=== PATIENT | female | born 1995 | race Two or more races ===

== ENCOUNTER 2018-12-20 15:59 | Emergency (ER) | payer MEDICARE, MEDICAID ==
[~2018-12-20] VITALS: Ht 157.5 cm; Wt 99.3 kg
[2018-12-20] MEDS ORDERED: SERTRALINE HCL25 MG ORAL (16:39)
[2018-12-20] MEDS ORDERED: TRAZODONE HCL150 MG ORAL (16:39)
[2018-12-20 16:41] VITALS: BP 103/67
[2018-12-20] MEDS ORDERED: Metoclopramide 10mg/2ml Inj IVP ONE (17:00)
[2018-12-20 17:19] LABS: APPEARANCE,URINE CLEAR; BILIRUBIN, URINE 1+ (NEGATIVE); COLOR,URINE BROWN; GLUCOSE, URINE (UA) NEGATIVE (NEGATIVE); KETONES,URINE 4+ (NEGATIVE); LEUKOCYTE ESTERASE ,URINE 2+ (NEGATIVE); NITRITE,URINE NEGATIVE (NEGATIVE); PH,URINE 6 (4.5-8.0); PROTEIN,URINE 2+ (NEGATIVE); UROBILINOGEN,URINE 4 MG/DL (0.0-1.0)
[2018-12-20 17:25] LABS: BASOPHILS % (AUTO) 1.2 % (0.0-2.0); EOSINOPHILS % (AUTO) 4.7 % (0.0-3.0); HEMATOCRIT 38.2 % (37.0-47.0); HEMOGLOBIN 13.1 G/DL (12.0-16.0); LYMPHOCYTES % (AUTO) 14.6 % (20.0-45.0); MEAN CORPUSCULAR VOLUME 86 FL (80-99); MONOCYTES % (AUTO) 5.4 % (1.0-10.0); NEUTROPHILS % (AUTO) 74.1 % (45.0-75.0); PLATELET COUNT 335 K/UL (150-450); RED BLOOD COUNT 4.44 M/UL (4.20-5.40); RED CELL DISTRIBUTION WIDTH 12.2 % (11.6-14.8); WHITE BLOOD COUNT 9.4 K/UL (4.8-10.8)
--- NOTE | 2018-12-20 17:26 | NUR ---
ED Nurse Note: pt walked in c/o abd pain and diarrhea.blood and urine sent ivf up pt medicated will monitor.
[2018-12-20 17:37] LABS: ANION GAP 9 mmol/L (5-15); BLOOD UREA NITROGEN 4 mg/dL (7-18); CALCIUM 8.8 MG/DL (8.5-10.1); CARBON DIOXIDE 25 MMOL/L (21-32); CHLORIDE 105 MMOL/L (98-107); CREATININE 0.6 MG/DL (0.55-1.30); SODIUM 139 MMOL/L (136-145)
[2018-12-20 17:47] LABS: ALANINE AMINOTRANSFERASE 23 U/L (12-78); ALBUMIN 3.6 G/DL (3.4-5.0); ALKALINE PHOSPHATASE 64 U/L (46-116); ASPARTATE AMINO TRANSFERASE 35 U/L (15-37); BILIRUBIN,TOTAL 1.2 MG/DL (0.2-1.0)
[2018-12-20 17:52] LABS: BILIRUBIN,DIRECT 0.1 MG/DL (0.0-0.3)
--- NOTE | 2018-12-20 18:42 | Emergency Room Report ---
History of Present Illness General Chief Complaint: Vomiting Source: Patient Present Illness HPI 23-year-old female with history of depression currently controlled with sertraline and trazodone is sent here by psychiatric facility due to 1 day of few bouts of nonbloody emesis. Patient reports that she has been having low appetite for the past day after the start of the new dosage of her sertraline. According to her psychiatrist patient needed to be checked at the emergency room. Patient denies diarrhea, abdominal pain, fever and chills. Chest pain, shortness of breath, palpitation, urinary symptoms. Her last menstrual period was a week ago and denies being . Denies drug use and alcohol intake. Denies smoking. Has not taken medication for her symptoms. Patient appears stable with stable vital signs. Has been able to take oral hydration. Patient reports that she used to take 100 mg of sertraline daily and as recommended by her psychiatrist in the facility she started taking 150 mg yesterday. Denies recent travel. Allergies: Coded Allergies: No Known Allergies (Unverified , 12/20/18) Patient History Past Medical History: see triage record Past Surgical History: unable to obtain Pertinent Family History: none Last Menstrual Period: 7-6 Now: No Immunizations: UTD Reviewed Nursing Documentation: PMH: Agreed; PSxH: Agreed Nursing Documentation-PMH Past Medical History: No History, Except For History Of Psychiatric Problem: Yes - depression Review of Systems All Other Systems: negative except mentioned in HPI Physical Exam Vital Signs Date Time Temp Pulse Resp B/P (MAP) Pulse Ox O2 Delivery O2 Flow Rate FiO2 12/20/18 16:33 98.4 70 103/67 (79) 98 Room Air 12/20/18 16:58 18 Sp02 EP Interpretation: reviewed, normal General Appearance: normal inspection, well appearing, no apparent distress, alert, GCS 15 Head: normocephalic, atraumatic Eyes: bilateral eye normal inspection, bilateral eye PERRL ENT: normal ENT inspection, hearing grossly normal Neck: normal inspection, full range of motion, supple Respiratory: normal inspection, chest non-tender, lungs clear, normal breath sounds, no rhonchi, no wheezing Cardiovascular #1: normal inspection, normal peripheral pulses, regular rate, rhythm, no edema, no gallop, no murmur, normal capillary refill Gastrointestinal: normal inspection, non tender, soft, no mass, no guarding, no hernia Rectal: deferred Genitourinary: no CVA tenderness Musculoskeletal: normal inspection, back normal, digits/nails normal Neurologic: normal inspection, alert, oriented x3 Psychiatric: normal inspection, judgement/insight normal, memory normal Skin: no rash Lymphatic: normal inspection, no adenopathy Medical Decision Making PA Attestation All my diagnosis and treatment plans were reviewed ad discussed with my supervising physician Dr. Pierson Diagnostic Impression: Primary Impression: Nausea Additional Impression: Adverse reaction to antidepressant drug ER Course 23-year-old female with history of depression currently controlled with sertraline and trazodone is sent here by psychiatric facility due to 1 day of few bouts of nonbloody emesis. Patient reports that she has been having low appetite for the past day after the start of the new dosage of her sertraline. According to her psychiatrist patient needed to be checked at the emergency room. Patient denies diarrhea, abdominal pain, fever and chills. Chest pain, shortness of breath, palpitation, urinary symptoms. Her last menstrual period was a week ago and denies being . Denies drug use and alcohol intake. Denies smoking. Has not taken medication for her symptoms. Patient appears stable with stable vital signs. Has been able to take oral hydration. Patient reports that she used to take 100 mg of sertraline daily and as recommended by her psychiatrist in the facility she started taking 150 mg yesterday. Denies recent travel. Ddx considered but are not limited to: Hypokalemia, gastroenteritis, nausea secondary to adverse reaction due to antidepressant drug, Vital signs: are WNL, pt. is afebrile H&PE are most consistent with: Nausea secondary to adverse reaction to antidepressant ORDERS: CBC, CMP, tox screen, UA, urine test ED INTERVENTIONS: NS bolus, Reglan DISCHARGE: At this time pt. is stable for d/c to home. Will provide printed patient care instructions, and any necessary prescriptions. Care plan and follow up instructions have been discussed with the patient prior to discharge. At this time patient to follow-up with her psychiatrist regarding the dosing of her medications no nausea medication given due to interaction with her sertraline. Patient denies any suicidal ideation today. Advised patient to return to the ER if worsening symptoms Last Vital Signs Date Time Temp Pulse Resp B/P (MAP) Pulse Ox O2 Delivery O2 Flow Rate FiO2 12/20/18 16:58 70 18 Room Air 12/20/18 16:41 98.4 103/67 98 Disposition: HOME, SELF-CARE Condition: Stable Referrals: NOT CHOSEN IPA/MD,REFERRING (PCP) Patient Instructions: Nausea and Vomiting, Adult Additional Instructions: Follow-up with your primary care provider and asked her psychiatrist if he can take any nausea medication possibly due to increased dose of your Zoloft you have felt less appetite as well as nausea drink a lot of fluids especially electrolyte water have a good diet entailing banana, rice, applesauce, piece of toast, avoid eating spicy and acidic food. Baltazar Lino Dec 20, 2018 18:42
[2018-12-20 18:53] VITALS: BP 105/67
--- NOTE | 2018-12-20 18:54 | NUR ---
ER DISCHARGE NOTE: Patient is cleared to be discharged per ERMD, pt is aox4, on room air, with stable vital signs. pt was given dc instructions, pt was able to verbalize understanding, pt id band and iv site removed without complications. pt is able to ambulate with steady gait. pt took all belongings.
== END 2018-12-20 18:55 | disposition home or self-care (01) ==
LOC: EMR 17:05
DX: R11.2 Nausea with vomiting, unspecified (principal); T43.205A Adverse effect of unspecified antidepressants, initial encounter; F32.9 Major depressive disorder, single episode, unspecified
CPT/HCPCS: 36415; 80053; 80307; 81001; 81025; 82248; 85025; 96361; 96372; 96374; 99284; G0480; J2765; 80329